=== PATIENT | female | born 1980 | race Caucasian/White ===

== ENCOUNTER 2022-02-19 01:08 | Emergency (ER) | payer MEDICAID ==
[2022-02-19] MEDS ORDERED: Acetaminophen/HYDROcodone 325-5 MG Tab PO ONE ×2 (01:49)
[2022-02-19 02:29] LABS: BLOOD UREA NITROGEN,BUN 20 mg/dL (7.0-18.0); CHLORIDE,CL 101 mmol/L (98-107); GLUCOSE RANDOM 112 mg/dL (74-106); SODIUM,NA 137 mmol/L (136-145)
== END 2022-02-19 03:25 | disposition home or self-care (01) ==
LOC: MW.ED 01:08
DX: M54.32 Sciatica, left side (principal); I10 Essential (primary) hypertension; Z79.899 Other long term (current) drug therapy
CPT/HCPCS: 36415; 80048; 85025; 85379; 85610; 99283; A9270